=== PATIENT | female | born 1965 | race African-American/Black ===

== ENCOUNTER 2024-04-20 16:51 | Outpatient (REF) | payer SELFPAY ==
[2024-04-20 17:50] LABS: ALT 29 U/L (14-59); AST 21 U/L (15-37); Albumin 3.8 g/dL (3.4-5.0); Alkaline Phosphatase 101 U/L (46-116); Anion Gap 7.7 mmol/L (3-11); BUN 13 mg/dL (7-18); Bilirubin, Total 1.53 mg/dL (0.2-1.0); CO2 28.3 mmol/L (21.0-32.0); CREATININE 0.6 mg/dL (0.55-1.02); Calcium 9.7 mg/dL (8.5-10.1); Chloride 105 mmol/L (98-107); Estimated GFR 104.63 (mL/min/1.73m2); Glucose 94 mg/dL (74-106); Potassium 3.4 mmol/L (3.5-5.1); Sodium 141 mmol/L (136-145); Total Protein 7.6 g/dL (6.4-8.2)
[2024-04-20 17:57] LABS: Hemoglobin A1C 4.8 % (<5.7)
== END 2024-04-20 16:52 | disposition home or self-care (01) ==
LOC: LBN 16:51
PROVIDERS: Visit Provider Family Medicine
DX: I10 Essential (primary) hypertension (principal); Z13.1 Encounter for screening for diabetes mellitus
CPT/HCPCS: 80053; 83036; 84443

== ENCOUNTER 2024-05-31 09:14 | Emergency (ER) | payer SELFPAY ==
[2024-05-31 09:18] VITALS: BP 159/93; PULSE 60; RESP 18; TEMP 36.6; O2SAT 93
--- NOTE | 2024-05-31 10:23 | W.ED.GENAD ---
Discharge Plan Disposition Patient Disposition: Home Condition: Stable Discharge Details Clinical Impression: Epistaxis, Nasal polyps Primary Care Provider: Tristan Law ED Provider: Ramon Hitchcock Home Meds and New Rx's Prescriptions: Continued hydrochlorothiazide 12.5 mg tablet 12.5 mg PO DAILY Qty: 90 4RF atorvastatin 40 mg tablet 40 mg PO QHS Qty: 90 4RF amlodipine 10 mg tablet 10 mg PO DAILY Qty: 90 4RF Discharge Instructions Instructions: Nosebleeds ED Additional Instructions: Please use Afrin no spray twice a day for the next 2 days. Please follow-up with [facility]. Please contact your primary care physician to arrange follow-up. Be sure to discuss history of hepatitis and potential treatment. Return to the ER immediately for any worsening or new concerning symptoms. Referrals: Tristan Law NP [Primary Care Provider] - Santhosh Porter MD [ [facility] STAFF PHYSICIAN] - [facility] General Mode of arrival: ambulatory. Date/Time Provider Initiated Documentation: 05/31/24 10:01. Limitations to Documentation: no limitations. Information obtained by: patient. HPI Narrative: 59-year-old female recently immigrated from [facility] with history of hepatitis B or hepatitis C, hypertension, hypercholesterolemia, here with epistaxis for the past 8 days. Symptoms seem worse at night. Bleeding is from left nare. She has had similar years ago in [facility]. Patient is not on blood thinners. Patient was seen at [facility] on 05/29 and started on Afrin and advised to use a humidifier. Patient did purchase a humidifier yesterday. She has been using Afrin intermittently over the past 2 days. She has not used any Afrin yet today. Bleeding is since stopped here in the Emergency Department with nasal clamp. Related Data Home Medications ?Medication ?Instructions ?Recorded ?Confirmed amlodipine 10 mg tablet 10 mg PO DAILY #90 tabs 05/21/24 05/31/24 atorvastatin 40 mg tablet 40 mg PO QHS #90 tabs 05/21/24 05/31/24 hydrochlorothiazide 12.5 mg tablet 12.5 mg PO DAILY #90 tabs 05/21/24 05/31/24 Previous Rx's ?Medication ?Instructions ?Recorded amlodipine 10 mg tablet 10 mg PO DAILY #90 tabs 05/21/24 atorvastatin 40 mg tablet 40 mg PO QHS #90 tabs 05/21/24 hydrochlorothiazide 12.5 mg tablet 12.5 mg PO DAILY #90 tabs 05/21/24 Allergies Allergy/AdvReac Type Severity Reaction Status Date / Time No Known Allergies Allergy Verified 05/31/24 09:25 General Stated Complaint: Epistaxis FARZAD: 4 Review of Systems All systems reviewed & are unremarkable except as noted in HPI and below Constitutional Constitutional: Denies fever(s) ENT Ears, Nose, Mouth, and Throat: Reports as per HPI Exam Const General: cooperative and no acute distress [facility] General nose exam: epistaxis on the left dried blood present; no active bleeding and nasal polyp bilaterally (large) Mouth: moist mucous membranes Throat: posterior oropharynx normal Eyes Conjunctivae: normal conjunctivae Sclera: normal sclerae Neck Neck: trachea midline and supple Skin General skin exam: no rashes or lesions noted Neuro General: patient alert, patient awake and tone normal Course Vital Signs Vital signs: Vital Signs Temperature 36.6 C 05/31/24 09:18 Pulse 60 05/31/24 09:18 Respiratory Rate 18 05/31/24 09:18 Blood Pressure 159/93 H 05/31/24 09:18 Pulse Oximetry 93 05/31/24 09:18 Temperature 36.6 C 05/31/24 09:18 Temperature Source Oral 05/31/24 09:18 Pulse 60 05/31/24 09:18 Respiratory Rate 18 05/31/24 09:18 Blood Pressure 159/93 H 05/31/24 09:18 Blood Pressure Position Sitting 05/31/24 09:18 Pulse Oximetry 93 05/31/24 09:18 Oxygen Delivery Method Room Air 05/31/24 09:18 Oxygen Flow Rate 0 05/31/24 09:18 Medical Decision Making 1027? 59-year-old female, recently immigrated from [facility], past medical history significant for hypertension, hyperlipidemia, question hepatitis B versus C, here with epistaxis over the past 8 days, intermittent. Patient was seen at [facility] 2 days ago and started on Afrin. She continues to have nosebleeds. Patient is hemodynamically stable. Patient did have normal [id number] hemoglobin at [facility]. I will check labs today to assess for anemia. Patient has no active bleeding at this time after nasal clamp had been applied in the waiting room. She has not yet administered Afrin today. I assisted her in administering Afrin. Plan to monitor while awaiting labs. 1135 --Labs reviewed and normal hemoglobin. No transaminitis noted. Patient reassessed and bleeding stopped. Plan for discharge with close outpatient follow-up with ENT. Patient was instructed to not blow her nose, to use humidifier, to use Afrin over the next couple days. Usual and customary discharge instructions were reviewed. Lab Data Lab results reviewed: Yes I reviewed the patient's lab results. Labs: Laboratory Tests Range/Units 05/31/24 10:34 WBC (4.4-10.8) 10^3/uL 4.47 RBC (3.93-5.22) 10^6/uL 4.58 Hgb (11.2-15.7) g/dL 13.5 Hct (36.0-46.0) % 39.7 MCV (80-95) fL 87 MCH (27.0-33.0) pg 29.5 MCHC (32.0-36.0) % 34.0 RDW (11.7-14.6) % 12.9 Plt Count (130-400) 10^3/uL 206 MPV (8.0-11.0) fL 9.5 Immature Gran % % 0.2 Neutrophils % % 28.9 Lymphocytes % % 57.9 Monocytes % % 7.2 Eosinophils % % 5.1 Basophils % % 0.7 Nucleated RBC % (0.0-0.3) % 0.0 Absolute Neutrophils (1.2-6.7) 10^3/uL 1.29 Absolute Lymphocytes (1.2-3.4) 10^3/uL 2.59 Absolute Monocytes (0.1-0.8) 10^3/uL 0.32 Absolute Eosinophils (0.0-0.7) 10^3/uL 0.23 Absolute Basophils (0.0-0.2) 10^3/uL 0.03 Sodium (136-145) mmol/L 142 Potassium (3.5-5.1) mmol/L 3.8 Chloride (98-107) mmol/L 105 Carbon Dioxide (21.0-32.0) mmol/L 29.3 Anion Gap (3-11) mmol/L 7.7 BUN (7-18) mg/dL 16 Creatinine (0.55-1.02) mg/dL 0.7 Est GFR (CKD-EPI 2020) (mL/min/1.73m2) 100.81 Glucose (74-106) mg/dL 89 Calcium (8.5-10.1) mg/dL 9.8 Total Bilirubin (0.2-1.0) mg/dL 0.68 AST (15-37) U/L 19 ALT (14-59) U/L 32 Alkaline Phosphatase (46-116) U/L 100 Total Protein (6.4-8.2) g/dL 7.7 Albumin (3.4-5.0) g/dL 3.8 Quality:[facility] Related Social Needs: No Data to Display PFSH All Active Problems (Updated 05/31/24 @ 11:36 by Ramon Hitchcock MD) Nasal polyps (Acute) Epistaxis (Acute) Hyperlipidemia (Acute) Hypertension (Chronic) Medical History (Updated 05/31/24 @ 11:36 by Ramon Hitchcock MD) Hepatitis Family History Mother Hypertension Stroke Maternal Grandmother Hypertension Stroke Father No problems noted. Sister No problems noted. Maternal Grandfather No problems noted. Paternal Grandmother No problems noted. Paternal Grandfather No problems noted. Social History Smoking/Tobacco Use Status: Never Second Hand Exposure: Yes Smoking risk assessment performed?: Yes Alcohol Intake: never Drug use: Never Substance use type: does not use Adopted: No Caregiver/Support person: Yes Household members: other Details: in-law apartment at daughter's house Housing: apartment Number of Children: 9 number of grandchildren: 5 Communication Needs: Cannot Read and Language Barriers Education Level: elementary school Details: fourth grade Do you need help understanding health information?: Always Sexually active: No Do you think of yourself as: straight/heterosexual Current gender identity: female What is your relationship status?: How often do you talk on the phone with friends or family?: three or more times per week How often do you get together with friends or relatives?: decline to answer How often do you attend samaritan or protestant services?: 4 or more times per year Do you belong to any clubs or organized social groups?: no Panel score (0-1 are the most socially isolated patients): 2 NHANES result reviewed/action taken: Yes What type of physical activity do you participate in: walking Frequency: 1-2 times per week Brittney/Quaker: Scientologist Special brittney needs: No Firearms in home: No Do you feel safe at home: Yes
[2024-05-31 10:42] LABS: Abs Immature Grans 0.01 10^3/uL (0.0-0.06); Absolute Basophil Count 0.03 10^3/uL (0.0-0.2); Absolute Eosinophil Count 0.23 10^3/uL (0.0-0.7); Absolute Lymphocyte Count 2.59 10^3/uL (1.2-3.4); Absolute Monocyte Count 0.32 10^3/uL (0.1-0.8); Absolute Neutrophil Count 1.29 10^3/uL (1.2-6.7); Basophils % 0.7 %; Eosinophils % 5.1 %; HCT 39.7 % (36.0-46.0); HGB 13.5 g/dL (11.2-15.7); Immature Grans % 0.2 %; Lymphocytes % 57.9 %; MCH 29.5 pg (27.0-33.0); MCV 87 fL (80-95); MPV 9.5 fL (8.0-11.0); Monocytes % 7.2 %; Neutrophils % 28.9 %; Platelet Count 206 10^3/uL (130-400); RBC 4.58 10^6/uL (3.93-5.22); RDW 12.9 % (11.7-14.6); RDW-SD 40.5 fL; WBC 4.47 10^3/uL (4.4-10.8)
[2024-05-31 10:56] LABS: ALT 32 U/L (14-59); AST 19 U/L (15-37); Albumin 3.8 g/dL (3.4-5.0); Alkaline Phosphatase 100 U/L (46-116); Anion Gap 7.7 mmol/L (3-11); BUN 16 mg/dL (7-18); Bilirubin, Total 0.68 mg/dL (0.2-1.0); CO2 29.3 mmol/L (21.0-32.0); CREATININE 0.7 mg/dL (0.55-1.02); Calcium 9.8 mg/dL (8.5-10.1); Chloride 105 mmol/L (98-107); Estimated GFR 100.81 (mL/min/1.73m2); Glucose 89 mg/dL (74-106); Potassium 3.8 mmol/L (3.5-5.1); Sodium 142 mmol/L (136-145); Total Protein 7.7 g/dL (6.4-8.2)
[2024-05-31 11:33] VITALS: BP 145/87; PULSE 58; RESP 18; O2SAT 99
== END 2024-05-31 11:55 | disposition home or self-care (01) ==
PROVIDERS: Emergency Provider Student in an Organized Health Care Education/Training Program; PCP Nurse Practitioner Family
DX: R04.0 Epistaxis (principal); J33.9 Nasal polyp, unspecified; I10 Essential (primary) hypertension; E78.00 Pure hypercholesterolemia, unspecified
CPT/HCPCS: 30901; 80053; 99283; 85025

== ENCOUNTER 2024-08-21 00:20 | Outpatient (CLI) | payer MEDICAID, SELFPAY ==
[2024-08-21 09:23] LABS: ALT 36 U/L (14-59); AST 24 U/L (15-37); Albumin 3.7 g/dL (3.4-5.0); Alkaline Phosphatase 111 U/L (46-116); Anion Gap 5.5 mmol/L (3-11); BUN 18 mg/dL (7-18); Bilirubin, Total 0.9 mg/dL (0.2-1.0); CO2 32.5 mmol/L (21.0-32.0); CREATININE 0.7 mg/dL (0.55-1.02); Calculated LDL 168 mg/dL (<100); Chloride 107 mmol/L (98-107); Cholesterol 242 mg/dL (<200); Estimated GFR 100.81 (mL/min/1.73m2); Glucose 90 mg/dL (74-106); HDL Cholesterol 54 mg/dL (>or=50); Sodium 145 mmol/L (136-145); Total Protein 7.6 g/dL (6.4-8.2); Triglyceride 102 mg/dL (<150)
== END 2024-08-21 00:21 | disposition home or self-care (01) ==
LOC: LBO 00:20
PROVIDERS: PCP Nurse Practitioner Family; Visit Provider Nurse Practitioner Family
DX: E78.5 Hyperlipidemia, unspecified (principal); M79.604 Pain in right leg
CPT/HCPCS: 36415; 80053; 80061; 83735

== ENCOUNTER 2024-09-10 01:04 | Outpatient (CLI) | payer MEDICAID, SELFPAY ==
--- NOTE | 2024-09-10 06:45 | DI.US_ITS ---
APPROVED REPORT EXAM: Comprehensive 2D, Doppler, and color-flow Echocardiogram Patient Location: Out-Patient Line Inspector: Farzad Zhou RDCS (AE) Indications: Grade 2 systolic murmur Conclusion Mild concentric left ventricular hypertrophy. Ejection fraction is 60 to 65%. Wall motion is normal Normal right ventricular size and function Both atria are normal in size Aortic valve is mildly sclerotic and trileaflet without stenosis or regurgitation Estimated right ventricular systolic pressure is 34 mmHg Wall motion Left Ventricle The left ventricle is normal size. The left ventricular systolic function is normal. The left ventric ular ejection fraction is within the normal range. Mild concentric left ventricular hypertrophy. Ther e is normal LV segmental wall motion. There is no ventricular septal defect visualized. LVEF is 60-65 %. Right Ventricle The right ventricle is normal size. The right ventricular systolic function is normal. Atria The left atrium size is normal. The right atrium size is normal. The interatrial septum is intact wit h no evidence for an atrial septal defect. Aortic Valve The aortic valve is mildly sclerotic. Aortic valve is trileaflet. There is no aortic valvular stenosi s. No aortic regurgitation is present. Mitral Valve The mitral valve is normal in structure. No evidence of mitral valve stenosis. There is no mitral sheila ve regurgitation noted. Tricuspid Valve The tricuspid valve is normal in structure. There is no tricuspid valve stenosis. Mild tricuspid regu rgitation. The RVSP is 34 mmHg. Pulmonic Valve The pulmonary valve is normal in structure. There is no pulmonic valvular stenosis. There is no pulmo lorena valvular regurgitation. Great Vessels The aortic root is normal in size. The ascending aorta is normal in size. Aortic arch is normal in ca liber. IVC is normal in size and collapses >50% with inspiration. Pericardium There is no pericardial effusion. 2D Dimensions IVSD d PLAX 1.26 cm F: 0.6-1.0 Ao Root d 2.75 cm F: 2.7 - 3.3 LVPW d PLAX 1.28 cm F: 0.6 - 1.0 Ao Asc Diam d 3.19 cm F: 2.3 - 3.1 LVID d PLAX 4.40 cm F: 3.8 - 5.2 LVDs 2.84 cm F: 2.2 - 3.5 LV EF Teichholz 65.2 % FS 35.56 % LV EDV (Teich) 87.7 mL LV ESV (Teich) 30.5 mL Stroke Vol Index (Teich) 28.33 M-Mode TAPSE 2.04 cm (M/F) >1.7 Auto EF LV EDV A4C 109.4 mL LV EDV A2C 121.7 mL LV EDV BP 117.1 mL LV ESV A4C 43.9 mL LV ESV A2C 42.6 mL LV ESV BP 43.4 mL LVEF(%) A4C 59.9 % LVEF(%) A2C 65.0 % LVEF(%) BP 62.9 % LV SV A4C 65.5 ml LV SV A2C 79.1 ml LV SV BP 73.6 ml LV CO A4C 3.4 L/min LV CO A2C 5.2 L/min LV CO BP 4.3 L/min HR A4C 52.25 BPM HR A2C 65.58 BPM LV EDV Index (BP) LA Volume LA Length A4C 5.3 cm LA Length A2C 5.0 cm LA Area A4C s 12.30 cm2 LA Area A2C s 13.72 cm2 LA Vol A4C A-L 24.25 mL LA Vol A2C A-L 32.07 mL LA Vol Biplane A-L 28.8 mL LA Vol/BSA A4C A-L LA Vol/BSA A2C A-L LA Vol/BSA BP A-L 14.2 mL/m2 LA Vol A4C MOD 22.8 mL LA Vol A2C MOD 30.6 mL LA Vol BP MOD 26.9 mL RA Volume RA Area A4C 8.9 cm2 RA ESV A4C (A-L) 17.4mL RA Vol/BSA A4C A-L RA Length A4C 3.8 cm RA ESV A4C (MOD) 16.1mL LV Diastology MV E' medial 0.087 (>0.07 m/s) MV E Vmax 0.64 (0.4-1.3 m/s) MV E/E' MED 7.33 (<14) MV A Vmax 0.50 (0.4-1.3 m/s) MV E' lateral 0.121 (>0.1 m/s) E/A Ratio 1.3 MV E/E' LAT 5.27 (<14) MV E' Average 0.104 m/s MV E/E'(average) 6.13 Aortic Valve LVOT Vmax 1.39 m/s LVOT Peak Grad 7.8 mmHg LVOT VTI 0.336 m LVOT Mean Grad 4.1 mmHg LVOT SV 115.93 mL LVOT Diam s 2.05 cm Mitral Valve MV DT 200 (160-240 msec) Pulmonary Valve PV Vmax 1.32 (0.5-1.5 m/s) RVOT Vmax 1.24 m/s PV Peak Grad 7.0 mmHg RVOT Peak Gr. 6.1 mmHg PV Mean Wily 0.95 m/s RVOT VTI 0.282 m PV Mean Grad 4.1 mmHg RVOT Mean Gr. 3.1 mmHg Tricuspid Valve RA Pressure 3.00 mmHg TR Vmax 2.78 m/s TV S' 0.13 m/s TR Peak Grad 30.8 mmHg RVSP (TR) 33.9 mmHg
--- NOTE | 2024-09-10 06:45 | DI.MAMMO_ITS ---
Exam(s) MAMMO SCREENING EXAM: MAMMO SCREENING CLINICAL HISTORY: screening, Z12.39 TECHNIQUE: Mammograms were interpreted according to the usual protocol including computer analysis w [facility] CAD system, tomosynthesis and C-view imaging. COMPARISON: No exams were available for comparison. Baseline examination. FINDINGS: The breasts are composed of scattered fibroglandular densities, Breast Density category B. No suspicious masses or suspicious microcalcifications are seen. No skin thickening or abnormal axillary lymph nodes are seen. There has been no significant change from prior exams. IMPRESSION: BI-RADS Category 1, Negative mammogram Yearly screening mammography is recommended. Breast Density - Category B, scattered fibroglandular densities. A negative radiographic report should not delay biopsy if a dominant or clinically suspicious mass is present. Up to ten percent of cancers are not identified on mammography. A negative report may reinforce clinical impression. Adenosis and dense breasts may obscure an underlying neoplasm. False positive reports average 6 to 10%. Patient will receive a letter notifying them of these results.
== END 2024-09-10 01:24 ==
LOC: DI 01:05
PROVIDERS: PCP Nurse Practitioner Family; Visit Provider Internal Medicine Cardiovascular Disease
DX: Z12.31 Encounter for screening mammogram for malignant neoplasm of breast (principal); R01.1 Cardiac murmur, unspecified; I51.7 Cardiomegaly
CPT/HCPCS: 77063; 77067; 93306

== ENCOUNTER 2024-09-12 13:19 | Outpatient (REF) | payer MEDICAID, SELFPAY ==
[2024-09-14 09:27] LABS: Hepatitis C Ab w Rflx HCV PCR Negative (Negative)
[2024-09-14 09:32] LABS: HIV-1/2 Ag & Ab Screen Negative (Negative)
[2024-09-14 11:18] LABS: HBs Antibody, Quant <3.1 mIU/mL (See Note); Hep B Surface Ab Negative (See Note); Hepatitis B Core Antibody Positive (Negative); Hepatitis B Surface Antigen Positive (Negative)
== END 2024-09-12 13:20 | disposition home or self-care (01) ==
LOC: LBN 13:19
PROVIDERS: PCP Nurse Practitioner Family; Visit Provider Nurse Practitioner Family
DX: Z11.59 Encounter for screening for other viral diseases (principal); Z11.4 Encounter for screening for human immunodeficiency virus [HIV]
CPT/HCPCS: 86704; 86706; 86803; 87340; 87389

== ENCOUNTER 2024-09-24 01:14 | Outpatient (CLI) | payer MEDICAID, SELFPAY ==
--- NOTE | 2024-09-24 08:35 | DI.RAD_ITS ---
Exam(s) XR ARTHRITIS SERIES EXAM: XR ARTHRITIS SERIES CLINICAL HISTORY: pain in hand, multiple joints,m79.643. TECHNIQUE: 2D digital imaging was performed. Three views were obtained. COMPARISON: No exams were available for comparison FINDINGS: BONES: No acute fracture is present. No bony destructive lesion is seen. JOINTS: No dislocation present. In the left hand, there are mild changes of osteoarthritis character ized by joint space narrowing and osteophytes. The findings predominantly involve the interphalangea l joints of the hand. The metacarpophalangeal joints are well maintained. No erosions or soft tissu e calcifications are seen. The carpus is well maintained. In the right hand, changes of osteoarthri tis are present, most marked at the interphalangeal joint of the thumb. The metacarpophalangeal join ts are well maintained. No erosions or soft tissue calcifications are seen. There is a well cortica clyde osseous density adjacent to the radial styloid process. This appears old. SOFT TISSUE: Normal. IMPRESSION: Mild osteoarthritis of the hands. DATA REPOSITORY: RADIATION DOSE DELIVERED:
--- NOTE | 2024-09-24 08:36 | DI.RAD_ITS ---
Exam(s) XR KNEE RT 3V AP,LAT,ILAN EXAM: XR KNEE RT 3V AP,LAT,ILAN CLINICAL HISTORY: rt knee pain,m25.561. TECHNIQUE: 2D digital imaging was performed of the right knee. Three views obtained. AP, lateral an d PA tunnel views were obtained. COMPARISON: No exams were available for comparison FINDINGS: BONES: No acute fracture is present. No bony destructive lesion is seen. JOINTS: Small osteophytes are seen in the medial femoral tibial joint. There is also small osteophyt e at the inferior posterior patella. The articular surfaces are otherwise well maintained. There is a small joint effusion. There is mild narrowing of the medial femoral tibial joint. SOFT TISSUE: Normal. IMPRESSION: Mild degenerative changes of the right knee and a small right joint effusion. DATA REPOSITORY: RADIATION DOSE DELIVERED:
--- NOTE | 2024-09-24 08:36 | DI.RAD_ITS ---
Exam(s) XR LUMBAR SPINE COMPLETE EXAM: XR LUMBAR SPINE COMPLETE CLINICAL HISTORY: low back pain,m54.50. TECHNIQUE: 2D digital imaging was performed of the lumbar spine. Five images were obtained. AP, la teral, right oblique, left oblique and L5-S1 spot views were obtained. COMPARISON: No exams were available for comparison FINDINGS: BONES: No fracture or destructive lesion. There are endplate osteophytes seen at several levels of th e lumbar spine particularly at L4-L5. Subchondral sclerosis is also seen at this level. There are d egenerative changes of the facets seen at L5-S1. DISKS: There is disc space narrowing at L4-L5. There is a vacuum disc at L4-L5. ALIGNMENT: Lumbar spinal alignment is within normal limits. No spondylolysis or spondylolisthesis. SOFT TISSUE: Normal. IMPRESSION: Moderate arthritis of the lumbar spine particularly at L4-L5. DATA REPOSITORY: RADIATION DOSE DELIVERED:
== END 2024-09-24 01:34 ==
LOC: DI 01:14
PROVIDERS: PCP Nurse Practitioner Family; Visit Provider Nurse Practitioner Family
DX: M51.360 Other intervertebral disc degeneration, lumbar region with discogenic back pain only (principal); M17.11 Unilateral primary osteoarthritis, right knee
CPT/HCPCS: 73562; 72110; 73120